=== PATIENT | female | born 1970 | race Caucasian/White ===

== ENCOUNTER 2017-08-04 14:30 | Day surgery (SDC) | payer BC ==
[2017-08-04] MEDS ORDERED: NS 0.9% 1000 ML* 1,000 ML IV ONE (15:02)
[2017-08-04 15:27] LABS: ABS Basophils 0 10^3/ul (0-0.2); ABS Eosinophils 0 10^3/ul (0-0.6); ABS Lymphocytes 1.5 10^3/ul (1.0-4.8); ABS Nucleated RBC 0 10^3/ul; Eosinophil % 0.1 % (0-6); Hematocrit 38 % (35-47); Hemoglobin 13.2 g/dl (12.0-16.0); Mean Corpuscular HGB Conc 35 g/dl (31-36); Mean Corpuscular Hemoglobin 34 pg (27-31); Mean Corpuscular Volume 98 fL (80-97); Mean Platelet Volume 7.9 um3 (7.4-10.4); Nucleated Red Blood Cells % 0; Platelet Count 217 10^3/ul (150-450); Red Blood Count 3.89 10^6/ul (4.00-5.40); Red Cell Distribution Width 12 % (10.5-15); White Blood Count 14.6 10^3/ul (3.5-10.8)
[2017-08-04 15:38] LABS: INR 0.94 (0.77-1.02)
[2017-08-04 15:44] LABS: EGFR Non-African American 91.2 (>60)
[2017-08-04] MEDS ORDERED: Iohexol 300* (CONTRAST) 10 ML SDV IV ONE (16:46)
[2017-08-04] MEDS ORDERED: Piperacillin/Tazobac ADVAN(*) 3.375 GM in NS 0.9% 100 ML* 100 ML IVPB ONE (17:45)
[2017-08-04] MEDS ORDERED: Piperacillin/Tazobac (*) 3.375 GM BAG ONE (17:47)
--- NOTE | 2017-08-04 17:48 | RAD ---
Indication: Right lower quadrant pain. Contrast: Administered 85.1 ml of OMNIPAQUE 300 mg/ml CT of the abdomen and pelvis was performed after oral and IV contrast administration. Coronal and sagittal reconstructed images were obtained. Lung bases demonstrate no pleural fluid, nodules or masses. Heart is of normal size without evidence of pericardial effusion. Liver is normal in size. No focal lesions or intrahepatic ductal dilatation is noted. The gallbladder demonstrates no calcific gallstones. No pericholecystic fluid or wall thickening is noted. The spleen is normal in size. The pancreas demonstrates no mass or pancreatic ductal dilatation. The common duct is not dilated. No adrenal lesions are noted. The kidneys demonstrate symmetric nephrograms without hydronephrosis. No retroperitoneal lymphadenopathy is noted. There is a tubular structure arising from the base of the cecum with thickening of the base of the cecum. This is consistent with appendix. There is thickening of the appendix measuring up to 18 mm in diameter which is abnormal. Findings are consistent with acute appendicitis. The uterus and ovaries are unremarkable. No free fluid is identified. No dilated loops of bowel are noted. Contrast is noted in the right colon. IMPRESSION: Findings suspicious for acute appendicitis. No evidence of periappendiceal abscess. Findings called to Dr. Evans at 1745 hours.
[2017-08-04] MEDS ORDERED: Ketorolac INJ* 30 MG/ML 1 ML VIAL ONE (18:34)
[2017-08-04] MEDS ORDERED: Dexamethasone IV* 4 MG/ML 1 ML (4 MG) ONE (18:34)
[2017-08-04] MEDS ORDERED: Ondansetron ODT TAB* 4 MG ONE (18:34)
[2017-08-04] MEDS ORDERED: Lidocaine 2% PF * 5 ML VIAL ONE (18:34)
[2017-08-04] MEDS ORDERED: Propofol* 10 MG/ML 20 ML BTL IV PUSH ONE (18:34)
[2017-08-04] MEDS ORDERED: fentaNYL* 50 MCG/ML 2 ML VIAL (100 MCG VIAL) ONE ×2 (18:35→21:17)
[2017-08-04] MEDS ORDERED: Cisatracurium* 2 MG/ML MDV 5 ML ONE (18:35)
[2017-08-04] MEDS ORDERED: Midazolam* 1 MG/ML 5 ML VIAL (5 MG) ONE (18:35)
--- NOTE | 2017-08-04 18:57 | ED ---
Neelima Gupta Emily, scribed for Maixmilian Evans on 08/04/17 at 1501 . Abdominal Pain/Female - HPI Summary HPI Summary: This patient is a 47 year old F presenting to [facility] accompanied by family with a chief complaint of waxing and waning, sharp epigastric abd pain radiating to RLQ that began at 0900 today. The patient rates the pain 3/10 in severity. Symptoms aggravated by nothing. Symptoms alleviated by nothing. Patient reports nausea and diarrhea. Patient denies vaginal bleeding. - History of Current Complaint Chief Complaint: EDAbdPain Stated Complaint: ABD PAIN Time Seen by Provider: 08/04/17 14:52 Hx Obtained From: Patient ?: No Onset/Duration: Sudden Onset, Lasting Hours, Still Present Timing: Constant Severity Initially: Mild Severity Currently: Mild Pain Intensity: 3 Pain Scale Used: 0-10 Numeric Location: Epigastric Radiates: Yes Radiates to: RLQ Character: Sharp Aggravating Factor(s): Nothing Alleviating Factor(s): Nothing Associated Signs and Symptoms: Positive: Nausea, Diarrhea. Negative: Vaginal Bleeding Allergies/Adverse Reactions: Allergies Allergy/AdvReac Type Severity Reaction Status Date / Time No Known Allergies Allergy Verified 08/04/17 14:53 Home Medications: Home Medications Citalopram TAB* [CeleXA TAB*] 10 mg PO DAILY 08/04/17 [History Confirmed ] Ethinyl Estradiol/Drospirenone [Drospirenone-Ee 3-0.03 mg Tab] 1 tab PO DAILY [History Confirmed 08/04/17] ValACYclovir (*) [Valtrex 500 mg (*)] 1 gm PO DAILY 08/04/17 [History Confirmed 08/04/17] PMH/Surg Hx/FS Hx/Imm Hx Previously Healthy: No Endocrine/Hematology History: Denies: Hx Diabetes Cardiovascular History: Denies: Hx Hypertension, Hx Pacemaker/ICD Musculoskeletal History: Reports: Hx Scoliosis Denies: Hx Rheumatoid Arthritis, Hx Osteoporosis Sensory History: Denies: Hx Hearing Aid Neurological History: Denies: Hx Headaches, Other Neuro Impairments/Disorders Psychiatric History: Denies: Hx Panic Disorder - Cancer History Hx Chemotherapy: No Hx Radiation Therapy: No - Surgical History Surgery Procedure, Year, and Place: TUBAL LIGATION. EYE SURGERY FOR LAZY EYE Hx Anesthesia Reactions: No Infectious Disease History: Yes Infectious Disease History: Denies: Traveled Outside the [place] in Last 30 Days - Family History Known Family History: Positive: Other - Negative breast CA - Social History Occupation: Employed Full-time Lives: With Family Alcohol Use: Daily Hx Substance Use: No Substance Use Type: Reports: None Hx Tobacco Use: Yes Smoking Status (MU): Former Smoker Review of Systems Positive: Abdominal Pain, Diarrhea, Nausea Genitourinary: Other - Negative vaginal bleeding All Other Systems Reviewed And Are Negative: Yes Physical Exam - Summary Physical Exam Summary: Appearance: Well appearing, no pain distress Skin: warm, dry, reflects adequate perfusion Head/face: normal Eyes: EOMI, ERI ENT: normal Neck: supple, non-tender Respiratory: CTA, breath sounds present Cardiovascular: RRR, pulses symmetrical Abdomen: tenderness in RUQ and RLQ, soft Bowel: present Musculoskeletal: normal, strength/ROM intact Neuro: normal, sensory motor intact, A&Ox3 Triage Information Reviewed: Yes Vital Signs On Initial Exam: Initial Vitals Temp Pulse Resp BP Pulse Ox 97.7 F 74 16 122/75 100 08/04/17 14:34 08/04/17 14:34 08/04/17 14:34 08/04/17 14:34 08/04/17 14:34 Vital Signs Reviewed: Yes Diagnostics - Vital Signs Vital Signs Temp Pulse Resp BP Pulse Ox 08/04/17 14:50 72 18 115/74 98 08/04/17 14:46 67 15 100 08/04/17 14:34 97.7 F 74 16 122/75 100 - Laboratory Lab Results: Lab Results 08/04/17 08/04/17 08/04/17 Range/Units 15:21 15:21 15:21 WBC 14.6 H (3.5-10.8) 10^3/ul RBC 3.89 L (4.00-5.40) 10^6/ul Hgb 13.2 (12.0-16.0) g/dl Hct 38 (35-47) % MCV 98 H (80-97) fL MCH 34 H (27-31) pg MCHC 35 (31-36) g/dl RDW 12 (10.5-15) % Plt Count 217 (150-450) 10^3/ul MPV 7.9 (7.4-10.4) um3 Neut % (Auto) 82.6 (38-83) % Lymph % (Auto) 10.0 L (25-47) % Randolph % (Auto) 7.1 H (0-7) % Eos % (Auto) 0.1 (0-6) % Baso % (Auto) 0.2 (0-2) % Absolute Neuts (auto) 12.0 H (1.5-7.7) 10^3/ul Absolute Lymphs (auto) 1.5 (1.0-4.8) 10^3/ul Absolute Monos (auto) 1.0 H (0-0.8) 10^3/ul Absolute Eos (auto) 0 (0-0.6) 10^3/ul Absolute Basos (auto) 0 (0-0.2) 10^3/ul Absolute Nucleated RBC 0 10^3/ul Nucleated RBC % 0 INR (Anticoag Therapy) 0.94 (0.77-1.02) APTT 28.4 (26.0-36.3) seconds Sodium 132 L (135-145) mmol/L Potassium 4.2 (3.5-5.0) mmol/L Chloride 98 L (101-111) mmol/L Carbon Dioxide 27 (22-32) mmol/L Anion Gap 7 (2-11) mmol/L BUN 10 (6-24) mg/dL Creatinine 0.69 (0.51-0.95) mg/dL Est GFR ( Amer) 110.3 (>60) Est GFR (Non-Af Amer) 91.2 (>60) BUN/Creatinine Ratio 14.5 (8-20) Glucose 102 H (70-100) mg/dL Calcium 9.4 (8.6-10.3) mg/dL Total Bilirubin 0.70 (0.2-1.0) mg/dL AST 17 (13-39) U/L ALT 16 (7-52) U/L Alkaline Phosphatase 39 (34-104) U/L Troponin I 0.00 (<0.04) ng/mL C-Reactive Protein 3.62 (<8.01) mg/L Total Protein 7.0 (6.4-8.9) g/dL Albumin 4.2 (3.2-5.2) g/dL Globulin 2.8 (2-4) g/dL Albumin/Globulin Ratio 1.5 (1-3) Lipase 15 (11.0-82.0) U/L Beta HCG, Quant < 0.60 mIU/mL Result Diagrams: 08/04/17 15:21 08/04/17 15:21 Lab Statement: Any lab studies that have been ordered have been reviewed, and results considered in the medical decision making process. - CT CT Abdomen/Pelvis CT Interpretation Completed By: Radiologist - CT Abdomen/Pelvis reveals, per radiologist, findings suspicious for acute appendicitis. No evidence of periappendiceal abscess. ED physician has reviewed this radiology report. - EKG 1305 Cardiac Rate: NL EKG Rhythm: Sinus Rhythm - [address] Segment: Normal Ectopy: None EKG Interpretation: No acute changes Re-Evaluation - Re-Evaluation First Eval Re-Evaluation Time: 17:46 Change: Unchanged Comment: Discussed results and plan of care with pt Abdominal Pain Fem Course/Dx - Course Course Of Treatment: This patient is a 47 year old F presenting to [facility] accompanied by family with a chief complaint of waxing and waning, sharp epigastric abd pain radiating to RLQ that began at 0900 today. Physical Exam Findings: Tenderness RUQ and RLQ. CT Abdomen/Pelvis reveals, per radiologist, findings suspicious for acute appendicitis. No evidence of periappendiceal abscess. Blood work and UA obtained. In the ED course the patient was given fluids, Zosyn, and contrast. Consult with Dr. Mckeon (surgery) at 1815. He agrees to admit the patient for surgery. The patient is agreeable with this plan. - Diagnoses Differential Diagnosis: Positive: Appendicitis, Diverticulitis, Gall Bladder Disease, Ovarian Cyst, Pancreatitis, Peptic Ulcer Disease, Renal Colic, Urinary Tract Infection Provider Diagnoses: Acute appendicitis, Abdominal pain Discharge - Sign-Out/Discharge Documenting (check all that apply): Discharge/Admit/Transfer - Admit to [facility] - Discharge Plan Condition: Stable Disposition: ADMITTED TO [facility] - Billing Disposition and Condition Condition: STABLE Disposition: Admitted to [facility] The documentation as recorded by the Neelima villanueva Emily accurately reflects the service I personally performed and the decisions made by , Maximilian Evans.
--- NOTE | 2017-08-04 19:04 | HP ---
H&P (Free Text) History and Physical: Surgery H & P Asked by Dr. Evans to evaluate a pt. with abdominal pain and a CT suggestive of appendicitis. Ms. Mello is a 47 y.o. female who reports she felt fine this morning, but went to work and started to feel a sharp, stabbing pain in the central abd. Over the day the pain waxed and waned but did not go away. It began to feel like it was on the right side and moving around to the back. She had some nausea, no vomiting, denies fever, had some chills. She began to have diarrhea which has persisted. She is not hungry. She has never had this kind of pain before. By this afternoon when it failed to improve she decided to come to the ER. She had an egg this morning and at 1:30 this afternoon tried to eat crackers but it made things worse. PMHx: denies Meds: antidepressant and OCP NKDA ROS: neg. SH: former tob, quit 15 years ago; daily EtOH, neg IVDA FH: CAD, HTN (father); appendicitis (son and father). PE: general: WDWN female in NAD Vital Signs 08/04/17 08/04/17 08/04/17 14:34 14:46 14:50 Temperature 97.7 F Pulse Rate 74 67 72 Respiratory 16 15 18 Rate Blood Pressure 122/75 115/74 (mmHg) O2 Sat by Pulse 100 100 98 Oximetry 08/04/17 08/04/17 08/04/17 15:00 15:20 15:50 Temperature Pulse Rate 76 Respiratory 15 16 17 Rate Blood Pressure 115/80 125/81 (mmHg) O2 Sat by Pulse 98 Oximetry 08/04/17 08/04/17 08/04/17 16:00 16:50 17:00 Temperature Pulse Rate 61 Respiratory 17 17 31 Rate Blood Pressure 126/82 (mmHg) O2 Sat by Pulse 99 Oximetry 08/04/17 08/04/17 08/04/17 17:50 18:01 18:21 Temperature Pulse Rate 70 59 Respiratory 20 14 15 Rate Blood Pressure 146/77 127/80 (mmHg) O2 Sat by Pulse 99 100 Oximetry 08/04/17 18:52 Temperature 97.7 F Pulse Rate 59 Respiratory 15 Rate Blood Pressure 127/80 (mmHg) O2 Sat by Pulse 100 Oximetry HEENT: anicteric sclerae, moist oral mucosa, neg. cervical adenopathy lungs: clear to ausc. heart: reg. without murmurs abd: good BS, soft, tender in RLQ with some guarding, no rebound; neg. CVAT ext: neg. cyanosis, edema Sodium 132 mmol/L (135-145) L 08/04/17 15:21 Potassium 4.2 mmol/L (3.5-5.0) 08/04/17 15:21 BUN 10 mg/dL (6-24) 08/04/17 15:21 Creatinine 0.69 mg/dL (0.51-0.95) 08/04/17 15:21 Calcium 9.4 mg/dL (8.6-10.3) 08/04/17 15:21 AST 17 U/L (13-39) 08/04/17 15:21 ALT 16 U/L (7-52) 08/04/17 15:21 Laboratory Results - last 24 hr 08/04/17 08/04/17 08/04/17 15:21 15:21 15:21 WBC 14.6 H RBC 3.89 L Hgb 13.2 Hct 38 MCV 98 H MCH 34 H MCHC 35 RDW 12 Plt Count 217 MPV 7.9 Neut % (Auto) 82.6 Lymph % (Auto) 10.0 L Teller % (Auto) 7.1 H Eos % (Auto) 0.1 Baso % (Auto) 0.2 Absolute Neuts (auto) 12.0 H Absolute Lymphs (auto) 1.5 Absolute Monos (auto) 1.0 H Absolute Eos (auto) 0 Absolute Basos (auto) 0 Absolute Nucleated RBC 0 Nucleated RBC % 0 INR (Anticoag Therapy) 0.94 APTT 28.4 Sodium 132 L Potassium 4.2 Chloride 98 L Carbon Dioxide 27 Anion Gap 7 BUN 10 Creatinine 0.69 Est GFR ( Amer) 110.3 Est GFR (Non-Af Amer) 91.2 BUN/Creatinine Ratio 14.5 Glucose 102 H Calcium 9.4 Total Bilirubin 0.70 AST 17 ALT 16 Alkaline Phosphatase 39 Troponin I 0.00 C-Reactive Protein 3.62 Total Protein 7.0 Albumin 4.2 Globulin 2.8 Albumin/Globulin Ratio 1.5 Lipase 15 Beta HCG, Quant < 0.60 CT scan: mildly inflamed appx. A/P: Probable appendicitis. Will proceed to OR for laparoscopic appendectomy. I have explained to her the nature of surgery, its risks, benefits, and alternatives. She understands and agrees to proceed. Larisa
[2017-08-04] MEDS ORDERED: Lidocaine 1% MPF wEPI 200,000* 30 ML SDV ONE (19:32)
[2017-08-04] MEDS ORDERED: Bupivacaine 0.5% SDV PF* 30ML VIAL ONE (19:32)
[2017-08-04] MEDS ORDERED: Famotidine IV* 10 MG/ML 2 ML (20 mg) ONE (20:14)
[2017-08-04] MEDS ORDERED: Metoclopramide IV* 5 MG/ML 2 ML VIAL ONE (20:14)
[2017-08-04] MEDS ORDERED: EPHEDrine (Pressors)* 50 MG/ML VIAL ONE (20:19)
[2017-08-04] MEDS ORDERED: Glycopyrrolate IV* 0.2 MG/ML 1 ML VIAL ONE (20:28)
[2017-08-04] MEDS ORDERED: Neostigmine Methylsulfate* 1 MG/ML 10 ML VIAL (1 mg/ml) ONE (20:28)
--- NOTE | 2017-08-04 20:54 | BRIEFOPN ---
Brief Operative Note - Surgery Procedures: 08/04/17 Op Note (dictated) Pre-op dx: appendicitis Post-op dx: same Procedure: laparoscopic appendectomy Surgeon: Mike Asst: none Anesth: general EBL: 10 cc complications: none SCDs on during OR ABx: therapeutic abx given by ER Pt. tolerated procedure well and was transferred to in a stable condition [facility]
[2017-08-04] MEDS ORDERED: HYDROcodone/ACETAMIN 5-325 MG* 1 TAB PO PRN (20:55)
[2017-08-04] MEDS ORDERED: Naloxone* 0.4 MG/ML 1 ML VIAL IV PRN (21:20)
[2017-08-04] MEDS ORDERED: oxyCODONE/Acetamin 5/325 MG* TAB PO PRN (21:20)
[2017-08-04] MEDS ORDERED: fentaNYL* 50 MCG/ML 2 ML VIAL (100 MCG VIAL) IV PRN (21:20)
[2017-08-04] MEDS ORDERED: DiMENhydriNATE IV* 50 MG/ML VIAL IV PUSH PRN (21:20)
[2017-08-04 22:06] VITALS: BP 128/82
--- NOTE | 2017-08-05 13:42 | OP ---
CC: Josephine Carroll NP * DATE OF OPERATION: 08/04/17 - SDS DATE OF : 70 SURGEON: Mirna Mckeon MD MEDICAL PAYMENT POSTER: There was no esol teacher assistant for this case. PRE-OP DIAGNOSIS: Appendicitis. POST-OP DIAGNOSIS: Appendicitis. OPERATIVE PROCEDURE: Laparoscopic appendectomy. INDICATIONS: The patient is a 47-year-old woman who presented to the emergency room with a day of abdominal pain. A CAT scan was obtained and showed appendicitis. This prompted the plan for surgical intervention. DESCRIPTION OF PROCEDURE: She was brought to the operating room, placed on the OR table in supine, and given general anesthesia. The abdomen was then prepped and draped in the usual sterile fashion. After infiltrating with local anesthetic, an incision was made in the infraumbilical area. Subcutaneous tissue was divided bluntly and the fascia was grasped and incised and a 0 Vicryl stitch was placed on either side of the fascial incision. Trocar was inserted into the abdomen and the abdomen was insufflated. Then under direct visualization, a suprapubic and a left flank incision was made and ports were placed under direct visualization. The cecum was grasped and rotated medially. This exposed an acutely inflamed appendix. Its base was clear of the infectious process, so it was cleared and an Endo ART stapler was fired across the base of the appendix. An Endo ART stapler was again fired across the mesoappendix. The appendix was then withdrawn through the infraumbilical port site. Inspection of the operative site revealed a small amount of bleeding. This was controlled with electrocautery. Blood was absorbed with 4x4 placed in the abdomen that was then withdrawn. A brief inspection of the rest of the abdomen revealed no obvious abnormalities. The liver appeared normal. The small and large intestine that were visualized appeared normal. Visualization of other structures was limited. All ports were then withdrawn under direct visualization and the previously placed 0 Vicryl was used to close the fascia at the infraumbilical port site and 4-0 Monocryl was used to close the skin of all incisions. Steri-Strips were applied. All sponge and instrument counts were correct. The patient tolerated the procedure well and was transferred to recovery in a stable condition. [id number]/[facility] #: [id number] [facility]
== END 2017-08-04 22:09 | disposition home or self-care (01) ==
LOC: ED 14:30 → OR 19:11
PROVIDERS: ATTEND Surgery
DX: K35.80 Unspecified acute appendicitis (principal); R10.31 Right lower quadrant pain; R19.7 Diarrhea, unspecified; R11.0 Nausea; Z87.891 Personal history of nicotine dependence
CPT/HCPCS: 36415; 74177; 80053; 83690; 84484; 84702; 85025; 85610; 85730; 86140; 88304; 93005; 99284; A9270-GY; C1776; J1100; J1885; J2001; J2250; J2543; J2704; J2710; J2765; J3010; Q9967